=== PATIENT | female | born 1960 | race Caucasian/White ===

== ENCOUNTER 2016-06-19 20:06 | Emergency (ER) | payer MEDICARE, OTHER ==
[~2016-06-19] VITALS: Wt 54.0 kg
[~2016-06-19 20:06] MED LIST: CIPR500T4 PO; FIORICET PO; HYDR-762 PO; MECL25TA2 PO; ONDA4TAB35 PO
[2016-06-19 22:23] LABS: URINE BLOOD (Dip) POC Trace-lysed (NEGATIVE)
--- NOTE | 2016-06-19 23:15 | RADRPT ---
PROCEDURE: XR Chest. CLINICAL INDICATION: right sided side pain TECHNIQUE: Single frontal view of the chest was obtained. COMPARISON: None available FINDINGS: The cardiomediastinal silhouette is normal size. Pulmonary vasculature is within normal limits. Th e lungs are clear. There is mild aortic calcification. No signs of pleural fluid or pneumothorax are seen. The osseous structures and soft tissues are unre markable. IMPRESSION: No evidence for active cardiopulmonary disease. Mild aortic calcification. RPTAT: HBST .Rayray Donnelly MD, Date Time Electronically viewed and signed by .Rayray Donnelly MD, on 06/19/2016 23:15 .T/
--- NOTE | 2016-06-19 23:18 | RADRPT ---
PROCEDURE: Ribs 3 views. AP view chest CLINICAL INDICATION: Trauma. TECHNIQUE: 3 views of the right ribs were obtained. Single AP view chest was obtained. COMPARISON: No pertinent prior examinations were submitted for comparison. FINDINGS: No definite fracture or subluxation is identified. No destructive osseous lesions are seen. The lungs are clear. The cardiomediastinal silhouette is unremarkable. IMPRESSION: No acute fracture or subluxation. RPTAT: HIKT .Mariusz Felton MD, MD Date Time Electronically viewed and signed by .Mariusz Felton MD, on 06/19/2016 23:17 .T/
[2016-06-19] MEDS ORDERED: NITR-58 PO (23:29)
[2016-06-19] MEDS ORDERED: IBUP-1542 PO (23:30)
[2016-06-19 23:47] VITALS: BP 122/73; PULSE 65; RESP 20; TEMP 98.3
--- NOTE | 2016-06-20 00:56 | ERD ---
ER Documentation Chief Complaint Date/Time DATE: 06/20/16 TIME: 00:53 Chief Complaint Right neck pain and right lower upper abdominal pain x1 wk HPI This is a 56-year-old female presents to the ER with multiple complaints. Patient states that she has had right-sided neck pain for the last week. She is also complaining of right-sided rib pain for the last week. Patient denies any nausea vomiting or diarrhea. Patient states that she is having urinary frequency and dysuria and has pain over her bladder. She denies any trauma to the ribs. She denies any chest pain or shortness of breath. Patient states that she has been stressed out and anxious at home and feels that aches and pains are related to this. ROS 12 point review of systems was done, all negative except per HPI. Medications Home Meds Active Scripts Ibuprofen* (Motrin*) 600 Mg Tab, 600 MG PO Q6, #30 TAB Prov:ANUPAM BRAN 06/19/16 Nitrofurantoin Monohyd Macrocr* (Macrobid*) 100 Mg Capsr, 100 MG PO BID for 7 Days, CAP Prov:ANUPAM BRAN 06/19/16 Meclizine Hcl* (Antivert*) 25 Mg Tablet, 25 MG PO Q6H Y for DIZZINESS, #20 TAB Prov:PATRICIA MILLER MD 10/23/15 Acetamin/Butalbital/Caffeine* (Fioricet*) 1 Tab Tab, 1 TAB PO Q4H Y for PAIN LEVEL 1-5, #7 TAB Prov:TRI GALAN PA-C 10/10/15 Ondansetron Hcl* (Zofran* ODT) 4 mg -ODT Tab.disper, 4 MG PO Q6 Y for NAUSEA AND /OR VOMITING, #30 TAB Prov:PATRICIA MILLER MD 12/19/14 Hydrocodone Bit-Acetaminophen* ([place]*) 10-325 Mg Tablet, 1 TAB PO Q6 Y for PAIN , #7 TAB Prov:PATRICIA MILLER MD 12/19/14 Ciprofloxacin Hcl* (Ciprofloxacin Hcl*) 500 Mg Tablet, 500 MG PO BID for 10 Days , TAB Prov:PATRICIA MILLER MD 12/19/14 Allergies Allergies: Coded Allergies: No Known Allergy (Unverified , 12/19/14) PMhx/Soc History of Surgery: Yes (Back surgery, Cholecystectomy, ) Anesthesia Reaction: No Hx Neurological Disorder: Yes (PARAPLEGIC, INCOMPLETE T1 FX ) Hx Respiratory Disorders: No Hx Cardiac Disorders: No Hx Psychiatric Problems: No Hx Miscellaneous Medical Probl: Yes (HIGH CHOL ) Hx Alcohol Use: No Hx Substance Use: No Hx Tobacco Use: No Physical Exam Vitals Vital Signs Date Time Temp Pulse Resp B/P Pulse Ox O2 Delivery O2 Flow Rate FiO2 06/19/16 23:47 98.3 65 20 122/73 99 Room Air 06/19/16 21:16 98.4 77 20 144/61 99 Physical Exam GENERAL: The patient is well developed and appropriate for usual state of health , in no apparent distress. Patient is wheelchair-bound HEENT: Atraumatic. \ CHEST: Clear to auscultation bilaterally. There are no rales, wheezes or rhonchi. Patient is tender to palpation over the right rib cage HEART: Regular rate and rhythm. No murmurs, clicks, rubs or gallops. ABDOMEN: Soft, nontender and nondistended. Good bowel sounds. No rebound or guarding. No gross peritonitis. No gross organomegaly or masses. No Manjarrez sign or McBurney point tenderness. Prepubic tenderness BACK: No midline or flank tenderness. NEURO: Alert and oriented. Results 24 hrs Laboratory Tests Test 06/19/16 22:25 Bedside Urine Blood Trace-lysed Bedside Urine Glucose (UA) Negative Bedside Urine Ketones (LAB) Negative Bedside Urine Leukocyte Esterase (L 1+ Bedside Urine Nitrite (LAB) Negative Bedside Urine Protein (LAB) Trace Bedside Urine pH (LAB) 7.0 Procedures/MDM This is a 56-year-old female presents to the ER with multiple complaints. Patient is rib cage pain is reproducible on physical examination. Suspicion for gallbladder problem is loss patient had her gallbladder taken out. I doubt pneumothorax or rib fracture. Patient does have a urinary tract infection. I doubt pyelonephritis as patient is afebrile and well-appearing. She does not have any nausea vomiting or any history of fevers or chills. Patient's physical examination is benign. She stable for outpatient therapy. Patient will be sent home with ibuprofen with Macrobid. She needs to follow-up with her primary care doctor within 1-2 days or return to ER sooner if symptoms worsen. Medical decision making patient with the patient she understands and agrees with plan Departure Diagnosis: Primary Impression: UTI (urinary tract infection) Additional Impression: Neck pain Condition: Stable Patient Instructions: Understanding Urinary Tract Infections (UTIs), Neck Pain , No Trauma Additional Instructions: Regrese a estas instalaciones dentro de [facility] para un examen de seguimiento.Regrese antes si arzate condicin se empeora. ANUPAM BRAN Jun 20, 2016 00:56
== END 2016-06-19 23:49 | disposition home or self-care (01) ==
LOC: FTE 20:06
DX: N39.0 Urinary tract infection, site not specified (principal); R07.81 Pleurodynia
CPT/HCPCS: 71010; 71100; 81003

== ENCOUNTER 2016-07-21 08:36 | Emergency (ER) | payer MEDICARE, OTHER ==
[~2016-07-21] VITALS: Wt 54.1 kg
[~2016-07-21 08:36] MED LIST changes: +IBUP-1542 PO; +NITR-58 PO
[2016-07-21 10:10] LABS: URINE BLOOD (Dip) POC Trace-intact (NEGATIVE)
[2016-07-21] MEDS ORDERED: CEPH-443 PO (10:44)
--- NOTE | 2016-07-21 11:00 | ERD ---
ER Documentation Chief Complaint Date/Time DATE: 07/21/16 TIME: 10:56 Chief Complaint DYSURIA FOR THE PAST FEW DAYS NO HEMATURIA OR NAUSEA OR VOMITNG HPI 56 year old female comes in paraplegic from T1 injury, comes in with dysuria for the past 3 days. She states she has had burning with urination as well as urgency. Patient is on terazosin as well as Macrobid daily for chronic urinary tract infection. She denies any fevers or chills or flank pain. She states that she has low back pain that is nonradiating. No saddle anesthesia or loss of bowel bladder function. Patient denies hematuria. ROS All systems reviewed and are negative except as per history of present illness. Medications Home Meds Active Scripts Cephalexin* (Keflex*) 500 Mg Capsule, 500 MG PO TID for 7 Days, CAP Prov:YUNG GUERRERO PA-C 07/21/16 Ibuprofen* (Motrin*) 600 Mg Tab, 600 MG PO Q6, #30 TAB Prov:ANUPAM BRAN 06/19/16 Nitrofurantoin Monohyd Macrocr* (Macrobid*) 100 Mg Capsr, 100 MG PO BID for 7 Days, CAP Prov:ANUPAM BRAN 06/19/16 Meclizine Hcl* (Antivert*) 25 Mg Tablet, 25 MG PO Q6H Y for DIZZINESS, #20 TAB Prov:PATRICIA MILLER MD 10/23/15 Acetamin/Butalbital/Caffeine* (Fioricet*) 1 Tab Tab, 1 TAB PO Q4H Y for PAIN LEVEL 1-5, #7 TAB Prov:TRI GALAN PA-C 10/10/15 Ondansetron Hcl* (Zofran* ODT) 4 mg -ODT Tab.disper, 4 MG PO Q6 Y for NAUSEA AND /OR VOMITING, #30 TAB Prov:PATRICIA MILLER MD 12/19/14 Hydrocodone Bit-Acetaminophen* ([place]*) 10-325 Mg Tablet, 1 TAB PO Q6 Y for PAIN , #7 TAB Prov:PATRICIA MILLER MD 12/19/14 Ciprofloxacin Hcl* (Ciprofloxacin Hcl*) 500 Mg Tablet, 500 MG PO BID for 10 Days , TAB Prov:PATRICIA MILLER MD 12/19/14 Allergies Allergies: Coded Allergies: No Known Allergy (Unverified , 8/11/15) PMhx/Soc Medical and Surgical Hx: pt denies Medical Hx History of Surgery: Yes (Back surgery, Cholecystectomy, ) Anesthesia Reaction: No Hx Neurological Disorder: Yes (PARAPLEGIC, INCOMPLETE T1 FX ) Hx Respiratory Disorders: No Hx Cardiac Disorders: No Hx Psychiatric Problems: No Hx Miscellaneous Medical Probl: Yes (HIGH CHOL ) Hx Alcohol Use: No Hx Substance Use: No Hx Tobacco Use: No Smoking Status: Never smoker Physical Exam Vitals Vital Signs Date Time Temp Pulse Resp B/P Pulse Ox O2 Delivery O2 Flow Rate FiO2 07/21/16 08:50 98.8 80 21 121/72 98 Physical Exam General: Well-developed, well-nourished. The patient appears in no acute distress. HEENT: Head is normocephalic, atraumatic. No scleral icterus. Neck: Supple. Nontender. Lungs: Clear to auscultation. Normal air movement. Heart: Regular rate and rhythm. S1 and S2 are normal. No murmurs, gallops, or rubs. Abdomen: Soft, suprapubic tenderness, nondistended. Bowel sounds are normoactive. No rebound pain, guarding or masses. Extremities: No clubbing or cyanosis. Patient is in wheelchair secondary to history. Neurologic: Alert and oriented 3. No focal deficits. Skin: Normal turgor. No rash or lesions. Results 24 hrs Laboratory Tests Test 07/21/16 10:09 Bedside Urine Blood Trace-intact Bedside Urine Glucose (UA) Negative Bedside Urine Ketones (LAB) Negative Bedside Urine Leukocyte Esterase (L Negative Bedside Urine Nitrite (LAB) Negative Bedside Urine Protein (LAB) Negative Bedside Urine pH (LAB) 6.0 Procedures/MDM ED course: Urine dip does not show evidence of UTI, this patient's urine was also sent for cultures. MDM: 56-year-old female who is paraplegic secondary to T1 injury comes in with suprapubic abdominal pain with painful urination and urgency for the past 3 days. Clinically she is well-appearing, no signs of sepsis, pyelonephritis. Her low back pain is in the lumbar region rather than flank. She does take Macrobid nightly for history of multiple urinary tract infections, based on patient's symptoms, I will be treating her for urinary tract infection. She has been given ER return precautions including fever or any worsening symptoms. Departure Diagnosis: Primary Impression: Dysuria Condition: Good Patient Instructions: Dysuria Additional Instructions: Call your primary care doctor TOMORROW for an appointment during the next 1-2 days.See the doctor sooner or return here if your condition worsens before your appointment time. YUNG GUERRERO PA-C Jul 21, 2016 11:00
== END 2016-07-21 11:04 | disposition home or self-care (01) ==
LOC: FTE 08:36
DX: R30.0 Dysuria (principal)
CPT/HCPCS: 81003; 87086; 99283

== ENCOUNTER 2017-12-18 14:48 | Emergency (ER) | END 2017-12-18 16:13 | disposition left against medical advice (07) ==